=== PATIENT | female | born 1955 | race Caucasian/White ===

== ENCOUNTER 2017-03-13 10:23 | Emergency (ER) | payer BC ==
[2017-03-13 11:08] VITALS: BP 125/66
--- NOTE | 2017-03-13 11:56 | UC ---
Knee Pain HPI - HPI Summary HPI Summary: right knee pain---hurt a little prior to playing golf yesterday---now pain is significantly worse was unable to sleep last night--most pain when leg is straightened - History of Current Complaint Chief Complaint: UCLowerExtremity Stated Complaint: RIGHT KNEE PAIN Time Seen by Provider: 03/13/17 11:55 Hx Obtained From: Patient ?: No Onset/Duration: Sudden Onset, Lasting Days - 2, Still Present, Worse Since - yesterday evening Severity Initially: Mild Severity Currently: Moderate Location Of Injury: right lateral/medial distal knee Pain Intensity: 8 Pain Scale Used: 0-10 Numeric Character: Sharp, Aching, Stiffness Aggravating Factor(s): Movement Associated Signs And Symptoms: Positive: Swelling Able to Bear Weight: Yes - with pain - Allergies/Home Medications Allergies/Adverse Reactions: Allergies Allergy/AdvReac Type Severity Reaction Status Date / Time Sulfa Drugs Allergy Severe Rash Verified 03/13/17 10:52 Home Medications: Home Medications Cholecalciferol TAB* [Vitamin D TAB*] 1,000 unit PO DAILY 03/13/17 [History Confirmed 03/13/17] FLUoxetine CAP* [Prozac CAP*] 10 mg PO MOTH 03/13/17 [History Confirmed 03/13/17 ] Multivitamins/Minerals TAB* [Thera M Plus TAB*] 1 tab PO DAILY 03/13/17 [ History Confirmed 03/13/17] PMH/Surg Hx/FS Hx/Imm Hx Previously Healthy: Yes - Surgical History Surgical History: Yes Surgery Procedure, Year, and Place: Appendectomy, 2011, [place] - Family History Known Family History: Positive: None Family History: no cardio vascular issues reported in family history - Social History Occupation: Retired Lives: With Family Alcohol Use: None Substance Use Type: None Smoking Status (MU): Former Smoker Type: Cigarettes Amount Used/How Often: ~1/2 PPD Length of Time of Smoking/Using Tobacco: <10 Years Have You Smoked in the Last Year: No When Did the Patient Quit Smoking/Using Tobacco: ~1978 - Immunization History Most Recent Tetanus Shot: 08/15/13 Review of Systems Constitutional: Negative Skin: Negative Eyes: Negative ENT: Negative Respiratory: Negative Cardiovascular: Negative Gastrointestinal: Negative Genitourinary: Negative Motor: Decreased ROM - right knee Neurovascular: Negative Musculoskeletal: Arthralgia - right knee Neurological: Negative Psychological: Negative All Other Systems Reviewed And Are Negative: Yes Physical Exam Triage Information Reviewed: Yes Appearance: Well-Appearing, Well-Nourished, Pain Distress Vital Signs: Initial Vital Signs Temp 97.9 F 03/13/17 10:47 Pulse 68 03/13/17 10:47 Resp 16 03/13/17 10:47 BP 125/66 03/13/17 10:47 Pulse Ox 99 03/13/17 10:47 Vital Signs Reviewed: Yes Eye Exam: Normal Eyes: Positive: Conjunctiva Clear ENT Exam: Normal ENT: Positive: Normal ENT inspection, Hearing grossly normal. Negative: Nasal congestion, Nasal drainage, Trismus, Muffled/hoarse voice Dental Exam: Normal Neck exam: Normal Neck: Positive: 1 Respiratory Exam: Normal Respiratory: Positive: Chest non-tender, Lungs clear, Normal breath sounds, No respiratory distress, No accessory muscle use Cardiovascular Exam: Normal Cardiovascular: Positive: RRR, No Murmur, Pulses Normal, Brisk Capillary Refill Musculoskeletal Exam: Normal Musculoskeletal: Positive: Strength Limited @ - right knee, ROM Limited @ - right knee, Edema @ - right knee Neurological Exam: Normal Neurological: Positive: Alert, Muscle Tone Normal, Fatigued Psychological Exam: Normal Skin Exam: Normal Knee Pain Course/Dx - Course Course Of Treatment: gianluca, crutches, antiinflammatories, knee immoblizer, rest ice follow with ortho in 4-5 days - Differential Dx/Diagnosis Differential Diagnosis/HQI/PQRI: Contusion, Fracture (Closed), Sprain, Strain Provider Diagnoses: Right Knee Bursitis Discharge - Discharge Plan Condition: Stable Disposition: HOME Prescriptions: Naproxen Sodium [Naproxen Sodium 500 MG TAB] 500 mg PO BID #40 tab Patient Education Materials: Crutch Instructions (ED), Knee Bursitis (ED), RICE Therapy (ED) Referrals: Héctor Franco MD [Medical Doctor] - 5 Days Marian Laws MD [Primary Care Provider] -
== END 2017-03-13 12:26 | disposition home or self-care (01) ==
LOC: UCCORT 10:23
DX: M71.561 Other bursitis, not elsewhere classified, right knee (principal); Z88.2 Allergy status to sulfonamides; Z87.891 Personal history of nicotine dependence
CPT/HCPCS: 99203; G0463